=== PATIENT | female | born 1940 | race Caucasian/White ===

== ENCOUNTER 2017-08-11 09:58 | Emergency (ER) | payer OTHER ==
[~2017-08-11] VITALS: Ht 160 cm; Wt 86.2 kg
[~2017-08-11 09:58] MED LIST: COLACE100 MG PO; CYCLOBENZAPRINE10 MG PO; CYMBALTA60 MG PO; Ecotrin325 MG PO; FESO PO; KEFLEX500 MG PO; LISINOPRIL10 MG PO; MACROBID100 M1 PO; METOPROLOL SR50 MG PO; NEURONTIN300 MG PO; NEURONTIN600 MG PO; PRILOSEC20 MG PO; Percocet 325 MG1 TAB PO; RESTORIL15 MG PO; RISPERIDONE0.5 M1 PO; VICODIN 5/500 505 MG PO; VICODIN 500 MG-1 TAB PO; VITAMIN B11000 MCG/M IJ; VITAMIN D5000 IU PO
[2017-08-11] MEDS ORDERED: Tobrex Ophth S2.5 ML OPH (10:17)
[2017-08-11] MEDS ORDERED: DOXYCYCLINE100 M3 PO (10:17)
== END 2017-08-11 10:45 | disposition home or self-care (01) ==
LOC: ED 09:58
DX: H00.024 Hordeolum internum left upper eyelid (principal); R03.0 Elevated blood-pressure reading, without diagnosis of hypertension; Z79.82 Long term (current) use of aspirin